=== PATIENT | female | born 1965 | race Caucasian/White ===

== ENCOUNTER 2020-09-15 18:21 | Emergency (ER) | payer MEDICAID ==
[~2020-09-15] VITALS: Ht 160 cm; Wt 52.3 kg
[2020-09-15 18:38] VITALS: BP 124/83
== END 2020-09-15 20:37 | disposition left against medical advice (07) ==
LOC: ER 18:22
DX: N64.4 Mastodynia (principal); Z53.21 Procedure and treatment not carried out due to patient leaving prior to being seen by health care provider

== ENCOUNTER 2020-09-16 11:49 | Emergency (ER) | payer MEDICAID ==
[~2020-09-16] VITALS: Ht 160 cm; Wt 52.3 kg
[2020-09-16 11:53] VITALS: BP 149/80
== END 2020-09-16 13:15 | disposition left against medical advice (07) ==
LOC: ER 11:49
DX: N63.0 Unspecified lump in unspecified breast (principal); Z88.0 Allergy status to penicillin
CPT/HCPCS: 99281

== ENCOUNTER 2020-09-26 14:25 | Emergency (ER) | payer MEDICAID ==
[~2020-09-26] VITALS: Ht 160 cm; Wt 57.0 kg
[2020-09-26 14:28] VITALS: BP 149/81
--- NOTE | 2020-09-26 15:23 | NUR ---
DURING PAST MEDICL HISTORY PT GOT UP AND WALKED OUT OF T2 TO THE LOBBY. WHEN I ASKED WHAT PT WAS DOING PT SAID "I WANT TO BE WITH MY ". I LET DOLLY KNOW THAT WE DO NOT LET FAMILY MEMBERS IN THE HOSPITAL. PT CHOSE TO LEAVE THE WAITING ROOM AND WAIT OUTSIDE.
== END 2020-09-26 15:30 | disposition left against medical advice (07) ==
LOC: ER 14:25
DX: R22.2 Localized swelling, mass and lump, trunk (principal); Z53.21 Procedure and treatment not carried out due to patient leaving prior to being seen by health care provider

== ENCOUNTER 2021-04-12 13:16 | Outpatient (CLI) | payer MEDICAID | END 2021-04-12 23:59 | disposition home or self-care (01) | LOC: CARD DIAG 13:16 | PROVIDERS: ATTEND Internal Medicine | DX: Z01.818 Encounter for other preprocedural examination (principal); C50.412 Malignant neoplasm of upper-outer quadrant of left female breast; I08.0 Rheumatic disorders of both mitral and aortic valves | CPT/HCPCS: 93306 ==